=== PATIENT | female | born 1980 | race Caucasian/White ===

== ENCOUNTER 2016-12-28 19:58 | Emergency (ER) | payer OTHER ==
[2016-12-28] MEDS ORDERED: HYDROmorphone 1 MG/ML SYRINGE IVP STA (20:15)
[2016-12-28] MEDS ORDERED: ONDANSETRON 4 MG/2 ML VIAL IVP STA (20:15)
--- NOTE | 2016-12-28 20:18 | ED Physician Documentation ---
PD HPI ABD PAIN - Stated complaint Stated Complaint: ABD PX - Chief complaint Chief Complaint: Abd Pain - History obtained from History obtained from: Patient, Family () - History of Present Illness Timing - onset: Other (36-year-old woman in a monogamous relationship with her , on oral contraceptive pills, she is currently midcycle. She had left lower quadrant pain which was mild today and about an hour ago became severe bilateral pelvic cramping which was otherwise nonradiating and associated with nausea but no vomiting. She does have IBS but this is inconsistent with IBS for her or any other IBS or other syndrome she has had in the past. There is no history of abdominal surgeries. She had vaginal discharge week ago which is now gone, no history of STDs.) Review of Systems Ten Systems: 10 systems reviewed and negative Constitutional: denies: Fever, Chills Nose: reports: Reviewed and negative Throat: reports: Reviewed and negative Cardiac: reports: Reviewed and negative PD PAST MEDICAL HISTORY - Past Medical History Past Medical History: No - Past Surgical History Past Surgical History: No - Present Medications Home Medications: Ambulatory Orders Medication Instructions Recorded Confirmed Norgestimate-Ethinyl Estradiol 1 tab PO DAILY 12/28/16 12/28/16 [Ortho Tri-Cyclen 28 Tablet] - Allergies Allergies/Adverse Reactions: Allergies Allergy/AdvReac Type Severity Reaction Status Date / Time No Known Drug Allergies Allergy Verified 12/28/16 20:06 - Social History Does the pt smoke?: No Does the pt have substance abuse?: No - Family History Family history: reports: Non contributory PD ED PE NORMAL - Vitals Vital signs reviewed: Yes - General General: Alert and oriented X 3, Other (Appears uncomfortable) - HEENT HEENT: PERRL, EOMI - Neck Neck: Supple, no meningeal sign, No bony TTP - Cardiac Cardiac: RRR, No murmur - Respiratory Respiratory: No respiratory distress, Clear bilaterally - Abdomen Abdomen: Other (Diminished bowel tones, pelvic tenderness, worse on the left than the right. No surgical signs.) - Back Back: No CVA TTP, No spinal TTP - Derm Derm: Normal color, Warm and dry - Extremities Extremities: No edema, No calf tenderness / cord - Neuro Neuro: Alert and oriented X 3, Normal speech - Psych Psych: Normal mood, Normal affect Results - Vitals Vitals: Vital Signs - 24 hr 12/28/16 12/28/16 12/28/16 20:03 20:45 22:32 Temperature 36.7 C 36.3 C L Heart Rate 78 69 72 Respiratory 20 14 16 Rate Blood Pressure 132/89 H 137/89 H 126/72 O2 Saturation 100 99 100 Oxygen O2 Source Room air - Labs Labs: Laboratory Tests 12/28/16 12/28/16 12/28/16 20:20 20:39 20:39 WBC 11.1 H RBC 4.93 Hgb 13.5 Hct 40.5 MCV 82.1 MCH 27.3 MCHC 33.3 RDW 14.2 Plt Count 264 MPV 8.8 Neut # 6.5 Lymph # 3.8 H [place] # 0.7 Eos # 0.1 Baso # 0.1 Absolute Nucleated RBC 0.00 Nucleated RBCs 0.0 Sodium 138 Potassium 3.9 Chloride 105 Carbon Dioxide 24 Anion Gap 9.0 BUN 12 Creatinine 0.5 Estimated GFR (MDRD) 141 Glucose 83 Calcium 9.3 Total Bilirubin 0.3 AST 21 ALT 24 Alkaline Phosphatase 76 Total Protein 7.8 Albumin 3.9 Globulin 3.9 Albumin/Globulin Ratio 1.0 Lipase 29 Urine Color YELLOW Urine Clarity CLEAR Urine pH 6.0 Ur Specific [place] <=1.005 Urine Protein NEGATIVE Urine Glucose (UA) NEGATIVE Urine Ketones NEGATIVE Urine Occult Blood NEGATIVE Urine Nitrite NEGATIVE Urine Bilirubin NEGATIVE Urine Urobilinogen 0.2 (NORMAL) Ur Leukocyte Esterase NEGATIVE Ur Microscopic Review NOT INDICATED Urine Culture Comments NOT INDICATED Urine HCG, Qual NEGATIVE - Rads (name of study) CT A/P Radiology: EMP read contemporaneously (Small pelvic free fluid, possible gallstone) PD MEDICAL DECISION MAKING - ED course ED course: 36-year-old woman presents with acute left pelvic pain, concern for diverticulitis because the had it quite young. She has mild leukocytosis. CT only consistent with a small amount of free fluid, possibly suggestive of ruptured ovarian cyst. Her pain was gone on recheck and nontender prior to discharge. Departure - Departure Disposition: 01 Home, Self Care Clinical Impression: Abdominal pain Qualifiers: Abdominal location: left lower quadrant Qualified Code(s): R10.32 - Left lower quadrant pain Cyst of ovary Qualifiers: Laterality: left Qualified Code(s): N83.202 - Unspecified ovarian cyst, left side Condition: Good Record reviewed to determine appropriate education?: Yes Instructions: ED Abdominal Pain Unkn Cause Comments: As discussed her CT scan is consistent with a ruptured ovarian cyst, no other pathology is evident. Return if worse or if new symptoms develop. You should not have any more significant pain, you can take Motrin for mild pain. Call your doctor to arrange a follow-up appointment, make the next available appointment. In the interim, return anytime if worse or if new symptoms develop. Your blood pressure was elevated today on check into the emergency department. This does not mean that you have hypertension, it is a common phenomenon to come to the emergency department and have elevated blood pressure. I recommend that she see her primary care physician within the week to have it rechecked when you are feeling better. Discharge Date/Time: 12/28/16 22:32
[2016-12-28] MEDS ORDERED: HYDROmorphone 1 MG/ML SYRINGE ONE (20:23)
[2016-12-28] MEDS ORDERED: ONDANSETRON 4 MG/2 ML VIAL ONE (20:23)
[2016-12-28 20:31] LABS: BILIRUBIN,URINE NEGATIVE (NEGATIVE)
[2016-12-28 20:33] LABS: HCG UR QUAL NEGATIVE; UA CHARGE (STRIP ONLY) YES; UR CULTURE IF IND NOT INDICATED
[2016-12-28 20:53] LABS: BASOPHILS # (AUTO) 0.1 10^3/uL (0.0-0.1); BASOPHILS % (AUTO) 0.5 %; EOSINOPHILS # (AUTO) 0.1 10^3/uL (0.0-0.7); EOSINOPHILS % (AUTO) 0.8 %; HCT - HEMATOCRIT 40.5 % (37.0-47.0); HGB - HEMOGLOBIN 13.5 g/dL (12.0-16.0); LYMPHOCYTES # (AUTO) 3.8 10^3/uL (1.5-3.5); LYMPHOCYTES % (AUTO) 34.1 %; MEAN CORPUSCULAR HEMOGLOBIN 27.3 pg (27.0-31.0); MEAN CORPUSCULAR HGB CONC 33.3 g/dL (32.0-36.0); MEAN CORPUSCULAR VOLUME 82.1 fL (81.0-99.0); MEAN PLATELET VOLUME 8.8 fL (7.9-10.8); MONOCYTES # (AUTO) 0.7 10^3/uL (0.0-1.0); MONOCYTES % (AUTO) 6.1 %; NEUTROPHILS # (AUTO) 6.5 10^3/uL (1.5-6.6); NEUTROPHILS % (AUTO) 58.5 %; RED BLOOD COUNT 4.93 10^6/uL (4.20-5.40); RED CELL DISTRIBUTION WIDTH 14.2 % (12.0-15.0); UNCORRECTED WHITE BLOOD COUNT 11.1 x10^3/uL; WHITE BLOOD COUNT 11.1 x10^3/uL (4.8-10.8)
[2016-12-28 21:05] LABS: BILIRUBIN,TOTAL 0.3 mg/dL (0.2-1.0); CALCIUM 9.3 mg/dL (8.5-10.3); CREATININE 0.5 mg/dL (0.4-1.0); POTASSIUM 3.9 mmol/L (3.5-5.0); TOTAL PROTEIN 7.8 g/dL (6.7-8.2)
[2016-12-28] MEDS ORDERED: IOPAMIDOL-300 100 ML VIAL IVP ONE (21:47)
--- NOTE | 2016-12-28 22:10 | CT Preliminary Report ---
Exam: CT Abdomen/Pelvis W/ IMPRESSION: 1. Small amount of free fluid in the pelvis, a nonspecific finding. Recently ruptured ovarian cyst co uld account for this appearance. 2. Possible tiny gallstone. [facility] SITE ID: [id number]
--- NOTE | 2016-12-28 22:13 | CT Report ---
EXAM: CT ABDOMEN AND PELVIS EXAM DATE: 12/28/2016 09:50 PM. CLINICAL HISTORY: Pain. COMPARISONS: None. TECHNIQUE: Routine helical CT imaging was performed through the abdomen and pelvis. IV contrast: 100 cc Isovue-300. Enteric contrast: No. Reconstructions: Coronal and sagittal. In accordance with CT protocol optimization, one or more of the following dose reduction techniques w ere utilized for this exam: automated exposure control, adjustment of mA and/or KV based on patient s ize, or use of iterative reconstructive technique. FINDINGS: Lung Bases: Unremarkable. Liver: Normal. No masses. Gallbladder/Bile Ducts: Suspicion of tiny gallstone on axial image 27. No ductal dilation. Spleen: Normal. Pancreas: Normal. Adrenal Glands: Normal. Kidneys: Normal. No masses or hydronephrosis. Peritoneal Cavity/Bowel: Normal. No free fluid, free air or adenopathy. No masses or acute inflammato ry process. The appendix is well visualized and normal. Pelvic Organs: Unremarkable urinary bladder. Dextroverted uterus. Small amount of free fluid in the c ul-de-sac and tracking into both adnexa, a nonspecific finding. Vasculature: No aneurysms or other significant abnormality. Bones: No significant abnormality. Other: None. IMPRESSION: 1. Small amount of free fluid in the pelvis, a nonspecific finding. Recently ruptured ovarian cyst co uld account for this appearance. 2. Possible tiny gallstone. [facility] Referring Provider Line: [phone] SITE ID: [id number]
[2016-12-28 22:34] VITALS: BP 126/72
== END 2016-12-28 22:32 | disposition home or self-care (01) ==
LOC: ED 19:58
DX: R10.32 Left lower quadrant pain (principal); N83.202 Unspecified ovarian cyst, left side
CPT/HCPCS: 36415; 74177; 80053; 81003; 81025; 83690; 85025; 96374; 96375; 99283; 99284; J1170; Q9967; 81001; 87086